=== PATIENT | male | born 1965 | race Caucasian/White ===

== ENCOUNTER → 2016-10-19 | Day surgery (SDC) | payer OTHER ==
[2016-10-18 14:53] VITALS: BMI 39.2
[~2016-10-19] MED LIST: LIDOCAINE HCL/PF 2% SDV 5ML VIAL ONE; PROPOFOL 20 ML ONE
[2016-10-19 08:15] VITALS: TEMP 97.6
[2016-10-19 08:53] VITALS: BP 112/76; PULSE 82
--- NOTE | 2016-10-20 14:17 | PATH ---
Surgical Pathology Report Patient Name: MESSI PHILLIPS [facility]. Rec. #: [id number] /Age/Gender: 1965 (Age: 51) / M Account: [id number] Location: [facility]-ENDOSCOPY Taken: 10/19/2016 Received: 10/19/2016 Reported: 10/20/2016 Physicians: Messi Pace M.D. Specimen(s) Received BX POLYP TRANSVERSE COLON Clinical History Colon screening Polyp transverse colon Final Diagnosis COLON, TRANSVERSE, POLYP, BIOPSY: POLYPOID FRAGMENTS OF COLONIC MUCOSA WITH FOCAL SURFACE HYPERPLASTIC CHANGE. Electronically Signed Ciprinao Powell M.D. Gross Description Received in formalin, labeled "biopsy polyp transverse colon" are 2 bundy, irregular portions of soft tissue measuring 0.3 and 0.5 cm in greatest dimension. The specimens are submitted in toto in one cassette. /10/19/201610/19/2016
== END | disposition home or self-care (01) ==
LOC: JASU-ENDO 06:54
PROVIDERS: ATTEND Internal Medicine Gastroenterology
PROC: 0DBL8ZX Excision of Transverse Colon, Via Natural or Artificial Opening Endoscopic, Diagnostic (ICD-10-PCS; principal; 2016-10-19 08:00)
DX: Z12.11 Encounter for screening for malignant neoplasm of colon (principal); D12.3 Benign neoplasm of transverse colon; K64.8 Other hemorrhoids
CPT/HCPCS: 88305-TC

== ENCOUNTER 2021-07-31 17:31 | Emergency (ER) | payer OTHER ==
[2021-07-31 18:23] VITALS: BP 120/67; PULSE 73; TEMP 98.5; BMI 35.4
== END 2021-07-31 20:12 | disposition home or self-care (01) ==
LOC: FER 17:31
DX: S46.211A Strain of muscle, fascia and tendon of other parts of biceps, right arm, initial encounter (principal)
CPT/HCPCS: 73030-TC-RT-FY; 73070-TC-RT-FY; 99284-25

== ENCOUNTER 2021-08-10 12:31 | Day surgery (SDC) | payer OTHER ==
[2021-08-06 11:05] VITALS: BMI 35.4
[2021-08-10] MEDS ORDERED: GUM MASTIC/STORAX/MSAL/ALCOHOL 1 DRP DROPSBTL MC ONE (13:37)
[2021-08-10] MEDS ORDERED: GLYCOPYRROLATE 0.2 MG/1 ML VIAL ONE (13:50)
[2021-08-10] MEDS ORDERED: PROPOFOL 20 ML ONE ×2 (13:50)
[2021-08-10] MEDS ORDERED: KETOROLAC TROMETHAMINE 30 MG/1 ML VIAL ONE (13:50)
[2021-08-10] MEDS ORDERED: DEXAMETHASONE SOD PHOSPHATE 4 MG/1 ML VIAL ONE (13:50)
[2021-08-10] MEDS ORDERED: ONDANSETRON 4 MG/2 ML VIAL ONE (13:50)
[2021-08-10] MEDS ORDERED: ceFAZolin SODIUM 1 GM VIAL ONE (13:50)
[2021-08-10] MEDS ORDERED: MIDAZOLAM HCL 2 MG/2 ML SINGLE DOSE VIAL ONE (13:50)
[2021-08-10] MEDS ORDERED: BUPIVACAINE HCL/PF 0.25% (2.5MG/ML) 10 ML VIAL ONE (14:51)
[2021-08-10] MEDS ORDERED: TRANEXAMIC ACID 1000 MG/10 ML VIAL ONE (15:37)
[2021-08-10] MEDS ORDERED: ACETAMINOPHEN INJECTION 100 ML IVPB ONE (16:15)
[2021-08-10] MEDS ORDERED: PROMETHAZINE HCL 25 MG/1 ML VIAL IVPUSH PRN (16:20)
[2021-08-10] MEDS ORDERED: oxyCODONE HCL 5 MG TABLET PO PRN ×2 (16:20)
[2021-08-10] MEDS ORDERED: ONDANSETRON 4 MG/2 ML VIAL IVPUSH PRN (16:20)
[2021-08-10] MEDS ORDERED: HYDROmorphone HCl 2 MG/ML VIAL IVPUSH ONE (16:21)
[2021-08-10] MEDS ORDERED: ACETAMINOPHEN 1000 MG/100 ML BAG IVPB ONE (16:21)
[2021-08-10] MEDS ORDERED: oxyCODONE HCL 5 MG TABLET ONE (16:53)
[2021-08-10 16:56] VITALS: TEMP 97.8
[2021-08-10 17:36] VITALS: BP 113/73; PULSE 72
== END 2021-08-10 17:55 | disposition home or self-care (01) ==
LOC: FASU 12:31
PROVIDERS: ATTEND Orthopaedic Surgery Sports Medicine
PROC: 0LQ30ZZ Repair Right Upper Arm Tendon, Open Approach (ICD-10-PCS; principal; 2021-08-10 14:33)
DX: S46.291A Other injury of muscle, fascia and tendon of other parts of biceps, right arm, initial encounter (principal); X58.XXXA Exposure to other specified factors, initial encounter; Y93.9 Activity, unspecified; Y92.9 Unspecified place or not applicable
CPT/HCPCS: 73070-TC-RT-FY; 82962; 94760; J0131